=== PATIENT | female | born 1945 | race Caucasian/White ===

== ENCOUNTER 2016-09-02 09:24 | Emergency (ER) ==
[2016-09-02 09:36] VITALS: BP 127/68; TEMP 98.9; BMI 20.6
[2016-09-02] MEDS ORDERED: TESSALON PERLES PO STA (10:09)
--- NOTE | 2016-09-02 10:10 | ED.PDOC ---
General ED Provider: Dr. SARA JAIN JR Chief Complaint: Cough Stated Complaint: Frequent cough. Swollen throat. Hurts to swallow. Had flu vaccine this year. Cough worse at noc. Difficult to sleep.[End]4 days 98.9 82 20 96% 127/68 06/10 hysterectomy, breast biopsy, gb surg, tonsillectomy, foot surgery. [ End ]osteoporosis arth Time Seen by Physician: 10:10 Mode of Arrival: Walk-In Information Source: Patient Exam Limitations: No limitations Primary Care Provider: DIEGO FUNK Nursing and Triage Documentation Reviewed and Agree: No Review of Systems - Review Of Systems Constitutional: Reports: No symptoms Eyes: Reports: No symptoms Ears, Nose, Mouth, Throat: Reports: Throat pain Respiratory: Reports: Cough Cardiac: Reports: No symptoms GI: Reports: No symptoms : Reports: No symptoms Musculoskeletal: Reports: No symptoms Skin: Reports: No symptoms Neurological: Reports: No symptoms Endocrine: Reports: No symptoms Hematologic/Lymphatic: Reports: No symptoms All Other Systems: Other Past Medical History - Past Medical History Endocrine: Reports: None Cardiovascular: Reports: None Respiratory: Reports: Pneumonia (?2014) Hematological: Reports: None Gastrointestinal: Reports: None Genitourinary: Reports: None Neuro/Psych: Reports: None Musculoskeletal: Reports: None Cancer: Reports: None Last Menstrual Period: hysterectomy - Surgical History General Surgical History: Reports: None, Hysterectomy - Family History Family History: Reports: Other (daughter with [employer] teaches daycare, daughter in law with illness and two grandchildren with urti symptoms and sore throats) - Social History Smoking Status: Never smoker Hx Substance Use: No Alcohol Screening: None Physical Exam - Physical Exam Appearance: Well-appearing Ill-appearing: Mild Pain Distress: Mild Eyes: JOY, EOMI, Conjunctiva clear ENT: Ears normal, Nose normal, Oropharynx normal Neck: Supple Respiratory: Rhonchi Cardiovascular: RRR, Pulses normal, No rub, No murmur GI/: Soft, Nontender, No masses, Bowel sounds normal, No Organomegaly Musculoskeletal: Normal strength, ROM intact, No edema, No calf tenderness Skin: Warm, Dry, Normal color Neurological: Sensation intact, Motor intact, Reflexes intact, Cranial nerves intact, Alert, Oriented Psychiatric: Affect appropriate, Mood appropriate Interpretation - Radiology Interpretation Radiology Interpretation By: Radiologist Radiology Results: Negative Exam Interpreted: CXR Critical Care Note - Critical Care Note Total Time (mins): 0 Course - Course Orders, Labs, Meds: Lab Review 09/02/16 10:45 Influenza A (Rapid) Negative Influenza B (Rapid) Negative Orders Category Date Time Status MOLECULAR GROUP A STREP Stat LAB 09/02/16 10:45 Results RAPID FLU A/B Stat LAB 09/02/16 10:45 Completed STREP SCREEN Stat LAB 09/02/16 10:45 Results Benzonatate [Tessalon Perles] MEDS 09/02/16 10:09 Discontinued 200 mg PO ONCE STA Methylprednisolone Sod Succ/Pf [Solu-Medrol 125 mg] MEDS 09/02/16 11:49 Discontinued 125 mg IM ONCE STA Sulfamethoxazole/Trimethoprim [Bactrim Ds 800/160 mg] MEDS 09/02/16 11:50 Discontinued 1 tab PO ONCE STA CHEST, 2 VIEWS PA & LAT Stat RADS 09/02/16 10:07 Completed Medications Discontinued Medications Generic Name Dose Route Start Last Admin Trade Name Freq PRN Reason Stop Dose Admin Benzonatate 200 mg 09/02/16 10:09 09/02/16 10:36 Tessalon Perles PO 09/02/16 10:10 100 mg ONCE STA Administration Methylprednisolone Sodium Succinate 125 mg 09/02/16 11:49 09/02/16 12:02 Solu-Medrol 125 Mg IM 09/02/16 11:50 125 mg ONCE STA Administration Trimethoprim/Sulfamethoxazole 1 tab 09/02/16 11:50 09/02/16 12:03 Bactrim Ds 800/160 Mg PO 09/02/16 11:51 1 tab ONCE STA Administration Vital Signs: Temp Pulse Resp BP Pulse Ox 09/02/16 09:26 98.9 F 82 20 127/68 96 Departure - Departure Time of Disposition: 11:50 Disposition: HOME SELF-CARE Discharge Problem: Pneumonia Instructions: Pneumonitis (ED), Community Acquired Pneumonia (ED) Condition: Good Pt referred to PMD for follow-up: Yes Additional Instructions: return if fever over 101.0 or if worsening Solumedrol given by injection Yandysjakob Lee or Robitussin AC for cough Bactrim antibiotic until gone Please follow-up with Dr. Funk in 1-5 days. Prescriptions: Sulfamethoxazole/Trimethoprim [Bactrim Ds Tablet] 1 tab PO Q12HR #20 tablet Benzonatate [Tessalon Perles] 200 mg PO TID PRN #20 capsule PRN Reason: Cough Guaifenesin/Codeine Phosphate [Robitussin AC Syrup] 10 ml PO Q6H PRN #240 ml PRN Reason: Cough Allergies/Adverse Reactions: Allergies Penicillins Adverse Reaction (Verified 09/02/16 09:36) Home Medications: Ambulatory Orders Alprazolam [Xanax] 1 tab PO QPM PRN 09/27/13 Azelastine HCl [Optivar] 1 drop EACHEYE BID 09/27/13 Bimatoprost Opth [Lumigan] 1 drop EACHEYE BID 09/27/13 Dorzolamide HCl/Timolol Maleat [Dorzolamide-Timolol Eye Drops] 1 drop EACHEYE TID 09/27/13 Metoprolol Succinate [Toprol Xl] 1 tab PO BID 09/27/13 Benzonatate [Tessalon Perles] 200 mg PO TID PRN #20 capsule 09/02/16 Guaifenesin/Codeine Phosphate [Robitussin AC Syrup] 10 ml PO Q6H PRN #240 ml 10/18 Montelukast Sodium [Singulair] 10 mg PO DAILY PRN 09/02/16 Rosuvastatin Calcium [Crestor] 10 mg PO EVERY OTHER DAY 09/02/16 Sulfamethoxazole/Trimethoprim [Bactrim Ds Tablet] 1 tab PO Q12HR #20 tablet 10/18
[2016-09-02] MEDS ORDERED: SOLU-MEDROL 125 MG IM STA (11:49)
[2016-09-02] MEDS ORDERED: BACTRIM DS 800/160 MG PO STA (11:50)
[2016-09-02 12:00] LABS: FLU INTERNAL QC INTERNAL QC VALID; RAPID FLU A NEGATIVE (NEGATIVE); RAPID FLU B NEGATIVE (NEGATIVE)
--- NOTE | 2016-09-02 13:36 | DI ---
EXAM: Chest two views HISTORY: Cough COMPARISON: 09/08/2014 TECHNIQUE: Two views of the chest were performed FINDINGS: No airspace consolidation. There is granulomatous calcification There is emphysematous c hange There is no pleural effusion or pneumothorax. The heart is normal in size. The mediastinal c ontour is normal. There are no acute abnormalities of the bones. IMPRESSION: No acute cardiopulmonary process. Emphysematous change.
== END 2016-09-02 12:10 | disposition home or self-care (01) ==
LOC: ED 09:24
DX: J18.9 Pneumonia, unspecified organism (principal); Z79.899 Other long term (current) drug therapy
CPT/HCPCS: 87651; 87804; 87880; 96372; 99283

== ENCOUNTER 2017-01-13 09:52 | Outpatient (CLI) ==
[2017-01-13 10:08] VITALS: BP 123/59; TEMP 97.7
[2017-01-13] MEDS ORDERED: PROLIA SUBCUT STA (10:08)
== END 2017-01-13 09:53 | disposition home or self-care (01) ==
LOC: OPMED 09:52
PROVIDERS: ATTEND Internal Medicine
DX: M81.0 Age-related osteoporosis without current pathological fracture (principal)
CPT/HCPCS: 96372

== ENCOUNTER 2017-05-06 14:19 | Outpatient (CLI) ==
--- NOTE | 2017-05-06 15:01 | DI ---
EXAM: PA and lateral views of the chest HISTORY: Chest pain and pressure COMPARISON: Chest x-ray 09/02/2016 and multiple priors FINDINGS: The cardiomediastinal silhouette is normal. There is no pneumothorax or pleural effusion . There is no consolidation, nodule or mass. Lungs are mildly hyperinflated. The osseous structures are unremarkable. There are surgical clips in right upper quadrant. IMPRESSION: No acute cardiopulmonary process with findings suggestive of chronic obstructive pulmon lydia disease.
== END 2017-05-06 14:20 | disposition home or self-care (01) ==
LOC: RAD 14:19
PROVIDERS: ATTEND Internal Medicine
DX: R07.9 Chest pain, unspecified (principal)

== ENCOUNTER 2017-06-24 08:51 | Outpatient (CLI) ==
--- NOTE | 2017-06-25 11:47 | MAMMO ---
EXAM: Bilateral digital screening mammogram (2-D and 3-D) Comparison: Bilateral mammogram 06/20/2016 History: Screening Findings: MLO and CC views of bilateral breasts demonstrate scattered fibroglandular breast parenchy ma. CAD was reviewed by the radiologist. Tomosynthesis was performed. There are no dominant masses, no suspicious microcalcifications and no architectural distortions Impression: Stable negative mammogram. Recommend followup routine screening mammography in 1 year. BIRADS 1
== END 2017-06-24 08:52 | disposition home or self-care (01) ==
LOC: RAD 08:51
PROVIDERS: ATTEND Specialist
DX: Z12.31 Encounter for screening mammogram for malignant neoplasm of breast (principal)
CPT/HCPCS: 77067

== ENCOUNTER → 2017-09-17 | Outpatient (POV) | LOC: OUTPT 00:01 | PROVIDERS: ATTEND Otolaryngology | DX: R42 Dizziness and giddiness (principal) | CPT/HCPCS: 92557; 92567 ==

== ENCOUNTER 2018-05-20 06:48 | Outpatient (CLI) ==
--- NOTE | 2018-05-21 13:41 | ECHO2D ---
Date of Exam: 05/20/18 Ordering Physician: DR. DIEGO FUNK Room #: OP Reason for Echo: CHEST PAIN, SHORTNESS OF BREATH M-Mode Normal Adult Results LV Dimensions Normal Adult Results AoV Opening excursions >1.6 >1.6 LVEDD-base- 3.5-5.8 3.3 Ao root dimensions 2.0-3.7 3.5 LVESD-base- 3.1-4.6 L. Atrium dimensions 1.9-3.8 3.0 Post. Wall thickness 0.8-1.1 1.0 IV septum (thickness) 0.7-1.2 1.0 Post. Wall excursion 0.72-1.3 NORMAL Septal motion NORMAL Systolic motion R. Ventricular cavity 1.5-2.0 NORMAL LVEF 60% 61% Paradoxical septal wall motion NORMAL 2-D : 2-D M Mode Echocardiogram was performed using apical four chamber and left parasternal long and short axis views. Mitral, tricuspid and aortic valves appear to be normal. Contractility of the left ventricle seems to be normal, so is the cavity size. Left atrial cavity size and aortic root appear to be normal. There is no pericardial effusion. There is no thrombus noted in the left ventricular or left aortic cavity. No mitral valve prolapse noted. M-MODE: MV: NORMAL AV: NORMAL TV: NORMAL PV: CHAMBER SIZE: NORMAL WALL MOTION: NORMAL PERICARDIUM: NORMAL INTERPRETATION: 1. NORMAL 2 "D" "M" MODE ECHO MTDD
== END 2018-05-20 06:49 | disposition home or self-care (01) ==
LOC: CAR 06:48
PROVIDERS: ATTEND Internal Medicine
DX: R06.02 Shortness of breath (principal); R07.9 Chest pain, unspecified

== ENCOUNTER 2018-05-21 06:39 | Outpatient (CLI) ==
--- NOTE | 2018-05-21 11:26 | ECHOSTRESS ---
Date of Exam: 05/21/18 Ordering Physician: DR. DIEGO FUNK Reason for Echo: CHEST PAIN, SOB, STRESS TEST--NO ISCHEMIA M-Mode Normal Adult Results LV Dimensions Normal Adult Results AoV Opening excursions >1.6 LVEDD-base- 3.5-5.8 Ao root dimensions 2.0-3.7 LVESD-base- 3.1-4.6 L. Atrium dimensions 1.9-3.8 Post. Wall thickness 0.8-1.1 IV septum (thickness) 0.7-1.2 Post. Wall excursion 0.72-1.3 Septal motion Systolic motion R. Ventricular cavity 1.5-2.0 LVEF 60% Paradoxical septal wall motion 2-D: NORMAL LEFT VENTRICULAR CONTRACTILITY--RESTING AND POST EXERCISE M-MODE: MV: AV: TV: PV: CHAMBER SIZE: WALL MOTION: NORMAL LEFT VENTRICULAR CONTRACTILITY--RESTING AND POST EXERCISE PERICARDIUM: INTERPRETATION: 1. NORMAL LEFT VENTRICULAR CONTRACTILITY--RESTING AND POST EXERCISE MTDD
--- NOTE | 2018-05-21 11:35 | STRESSMOD ---
Date of Test: 05/21/18 Ordering Physician: DR. DIEGO FUNK Occupation: RETIRED Reason for Exam: CHEST PAIN, SOB Height: 62" Weight: 107 LBS Current Medications: TOPROL XL, CRESTOR, XANAX, SINGULAIR, DIAZEPAM Target Heart Rate: 124 BPM Resting EKG: SINUS RHYTHM/ NO ACUTE CHANGES S-T SEGMENT STAGE MPH/GRADE HEART RATE BPM BLOOD PRESSURE mmhg RHYTHM +/- ELEVATION DEPRESSION SYMPTOMS,COMMENTS At Rest 54 BPM 98/68 MMHG SR X NONE 1 1.7/0% 90 BPM 112/40 MMHG SR X NONE 2 1.7/5% 100 BPM 124/40 MMHG SR X NONE 3 1.7/10% 132/50 MMHG SR X NONE 4 2.5/12% 5 3.4/14% Immediately After 128 BPM SR X FATIGUE Minutes Post Exercise Minutes Post Exercise DURATION OF EXERCISE: 10:00 MAXIMUM HEART RATE REACHED: 128 BPM REASON FOR TERMINATION: FATIGUE 98% OXYGEN SATURATION WITH EXERCISE ON ROOM AIR METS 7.0 INTERPRETATION: 1. NO EVIDENCE OF ISCHEMIA BY ST-T WAVE 2. NO CHEST PAIN OR CHEST DISCOMFORT 3. BLOOD PRESSURE RESPONSE: NORMAL AT REST AND WITH EXERCISE 4. NO ARRHYTHMIAS NORMAL LEFT VENTRICULAR CONTRACTILITY--RESTING AND POST EXERCISE MTDD
== END 2018-05-21 06:40 | disposition home or self-care (01) ==
LOC: CAR 06:39
PROVIDERS: ATTEND Internal Medicine
DX: R06.02 Shortness of breath (principal); R07.9 Chest pain, unspecified

== ENCOUNTER 2018-06-25 10:22 | Outpatient (CLI) ==
--- NOTE | 2018-06-26 09:22 | MAMMO ---
EXAM: Bilateral digital screening mammogram (2-D and 3-D) History: Screening Comparison: Bilateral mammogram 06/24/2017 Findings: MLO and CC views of bilateral breast demonstrate scattered fibroglandular breast parenchym a. CAD was reviewed by the radiologist. Tomosynthesis was performed. There are no dominant masses, no suspicious microcalcifications and no architectural distortions Impression: Stable negative mammogram. Recommend followup routine screening mammography in 1 year. BIRADS 1
== END 2018-06-25 10:23 | disposition home or self-care (01) ==
LOC: RAD 10:22
PROVIDERS: ATTEND Internal Medicine
DX: Z12.31 Encounter for screening mammogram for malignant neoplasm of breast (principal)
CPT/HCPCS: 77067